=== PATIENT | male | born 1950 | race Caucasian/White ===

== ENCOUNTER 2020-08-02 09:43 | Inpatient (IN) | payer OTHER ==
[~2020-08-02] VITALS: Ht 177.8 cm; Wt 93.0 kg
[~2020-08-02 09:43] MED LIST: AMLO5 PO; ATOR40TA PO; BP MED; CHOLESTEROL MED; CITA20 PO; IRBESARTAN300 MG PO; PSYL5.85P PO
[2020-08-02 10:23] LABS: BASOPHILS ABSOLUTE AUTO 0.05 K/mm3 (0.00-0.23); BASOPHILS PERCENT AUTO 0 % (0-2); EOSINOPHILS PERCENT AUTO 0 % (0-6); Hematocrit 33.7 % (37.0-53.0); Hemoglobin 10.3 g/dL (13.5-17.5); IMMATURE GRAN ABSOLUTE AUTO 0.16 K/mm3 (0.00-0.10); IMMATURE GRAN PERCENT AUTO 1 % (0-1); LYMPHOCYTES ABSOLUTE AUTO 1.21 K/mm3 (0.84-5.20); LYMPHOCYTES PERCENT AUTO 7 % (21-46); MONOCYTES ABSOLUTE AUTO 0.93 K/mm3 (0.16-1.47); MONOCYTES PERCENT AUTO 5 % (4-13); Mean Corpuscular HGB 27.1 pg (26.0-34.0); Mean Corpuscular HGB Conc 30.6 g/dL (31.5-36.5); Mean Corpuscular Volume 89 fL (80-100); NEUTROPHILS ABSOLUTE AUTO 15.16 K/mm3 (1.96-9.15); NEUTROPHILS PERCENT AUTO 87 % (41-73); Platelet Count 198 K/mm3 (150-400); RDW Coefficient Variation 14.1 % (11.7-14.2); RDW Standard Deviation 45.8 fL (35.1-46.3); White Blood Cell Count 17.51 K/mm3 (4.00-11.30)
[2020-08-02 10:40] LABS: International Normalized Ratio 1.02; Prothrombin Time Results 10.9 Sec (9.7-11.5)
[2020-08-02 10:41] LABS: Alanine Aminotransfer (ALT/SGP 34 U/L (12-78); Albumin, Blood 3.2 g/dL (3.4-5.0); Albumin/Globulin Ratio 1.2 (0.8-1.8); Alk Phos 64 U/L (50-136); Anion Gap 10 mmol/L (6-16); Aspartate Aminotrans (AST/SGOT 14 U/L (12-37); Bilirubin, Total 0.4 mg/dL (0.1-1.0); Blood Urea Nitrogen 55 mg/dL (8-24); CO2, Blood 22 mmol/L (21-32); Calcium, Blood 8.4 mg/dL (8.5-10.1); Chloride, Blood 107 mmol/L (98-108); Globulin, Blood 2.7 g/dL (2.2-4.0); Glomerular Filtration Rate >60 (60-); Glucose, Blood 238 mg/dL (70-99); Sodium, Blood 139 mmol/L (136-145); Total Protein, Blood 5.9 g/dL (6.4-8.2)
[2020-08-02] MEDS ORDERED: CARV3.125 PO (11:19)
[2020-08-02] MEDS ORDERED: ATOR40TA PO (11:19)
[2020-08-02] MEDS ORDERED: CITALOPRAM HBR10 MG PO (11:19)
[2020-08-02] MEDS ORDERED: ZYRTEC10 M2 PO (14:35)
[2020-08-02 15:23] LABS: Hematocrit 32.7 % (37.0-53.0); Hemoglobin 10.5 g/dL (13.5-17.5)
--- NOTE | 2020-08-02 18:40 | NUR ---
SETTLED PT TO BED, PLACED TELE. PT LUNGS CLEAR, RESP EASY, UNLABORED. STATES NO BM SINCE EARLIER IN DAY. STATES DARK TARRY STOOL LOOSE. PLACED HAT IN COMMODE. AT BEDSIDE. PT A/O X3 PLEASANT. URINAL AT BEDSIDE. PASSED INFO TO VICTORIA HALL.
[2020-08-02 21:28] LABS: Hematocrit 31.5 % (37.0-53.0); Hemoglobin 9.7 g/dL (13.5-17.5)
[2020-08-02 23:27] LABS: Source, Urine Clean Catch
[2020-08-02 23:30] LABS: Bilirubin, Urine Neg (Neg); Blood, Urine Neg (Neg); Glucose Qualitative, Urine Neg (Neg); Ketones, Urine Neg (Neg); Leukocyte Esterase, Urine Neg (Neg); Nitrite, Urine Neg (Neg); Protein, Urine Neg (Neg); Specific Gravity, Urine 1.015 (1.003-1.022); Urobilinogen, Urine NORM (Normal)
[2020-08-02 23:31] LABS: Appearance, Urine Clear (Clear); Color, Urine Yellow (P-Yellow)
[2020-08-03 02:15] LABS: Hematocrit 27.7 % (37.0-53.0); Hemoglobin 8.8 g/dL (13.5-17.5); Mean Corpuscular HGB 27.6 pg (26.0-34.0); Mean Corpuscular HGB Conc 31.8 g/dL (31.5-36.5); Mean Corpuscular Volume 87 fL (80-100); Mean Platelet Volume 10.6 fL (9.1-12.4); Platelet Count 164 K/mm3 (150-400); RDW Coefficient Variation 14.6 % (11.7-14.2); RDW Standard Deviation 45.5 fL (35.1-46.3); Red Blood Cell Count 3.19 M/mm3 (4.30-5.90); White Blood Cell Count 15.35 K/mm3 (4.00-11.30)
[2020-08-03 02:34] LABS: Alanine Aminotransfer (ALT/SGP 23 U/L (12-78); Albumin, Blood 3.3 g/dL (3.4-5.0); Albumin/Globulin Ratio 1.3 (0.8-1.8); Alk Phos 54 U/L (50-136); Anion Gap 8 mmol/L (6-16); Aspartate Aminotrans (AST/SGOT 13 U/L (12-37); Bilirubin, Total 0.3 mg/dL (0.1-1.0); Blood Urea Nitrogen 34 mg/dL (8-24); CO2, Blood 26 mmol/L (21-32); Calcium, Blood 8.2 mg/dL (8.5-10.1); Chloride, Blood 108 mmol/L (98-108); Globulin, Blood 2.5 g/dL (2.2-4.0); Glomerular Filtration Rate >60 (60-); Glucose, Blood 131 mg/dL (70-99); Potassium, Blood 4.5 mmol/L (3.5-5.5); Sodium, Blood 142 mmol/L (136-145); Total Protein, Blood 5.8 g/dL (6.4-8.2)
--- NOTE | 2020-08-03 05:32 | NUR ---
PT UNABLE TO GET MUCH SLEEP TONIGHT. AO TELE NSR ROOM AIR VOIDING TO URINAL 2 SMALL BM - BLACK, TARRY STOOL VSS H/H TRENDING DOWN NO C/O PAIN CALL LIGHT WITHIN REACH, BED IN LOWEST POSITION. WILL CONTINUE TO MONITOR.
--- NOTE | 2020-08-03 07:35 | NUR ---
ASSUMED CARE: PT AWAKE AND TALKING TO STAFF UPON ENTRANCE TO ROOM. NSR ON TELE. NO ACUTE NEEDS OR CONCERNS AT THIS TIME. HAVE NOT WITNESSED STOOL BUT NIGHT RN REPORTS BLACK AND RAGHAVENDRA
[2020-08-03 09:03] LABS: Hematocrit 25.9 % (37.0-53.0); Hemoglobin 8.2 g/dL (13.5-17.5)
--- NOTE | 2020-08-03 09:52 | NUR ---
DAY SURGERY STAFF AT BEDSIDE AT THIS TIME. TAKING PT FOR PROCEDURE VIA ANN MARIERTRENA.
--- NOTE | 2020-08-03 10:02 | NUR ---
History, Chart, Medications and Allergies reviewed before start of procedure. Lungs clear T/O to Auscultation. Patient confirms NPO status and agrees with scheduled surgery. Pre-Op teaching done. Pt verbalizes understanding.
--- NOTE | 2020-08-03 10:46 | NUR ---
08/03/20 1046 Dinah Nettles History, Chart, Medications and Allergies reviewed before start of procedure.PATIENT DETERMINED TO BE ASA APPROPRIATE FOR PROPOFOL SEDATION PRIOR TO START OF PROCEDURE BY .MONITOR INTACT WITH CONTINUOUS PULSE OXIMETRY AND INTERMITTENT BP.3-LEAD EKG REVIEWED WITH PHYSICIAN PRIOR TO START OF PROCEDURE.O2 VIA N/C INTACT THROUGHOUT SEDATION/PROCEDURE.BP INTERMITTENTLY LKOW DURING PROCEDURE. MD ERVIN.
[2020-08-03 14:58] LABS: Hematocrit 23.4 % (37.0-53.0); Hemoglobin 7.4 g/dL (13.5-17.5)
--- NOTE | 2020-08-03 16:10 | NUR ---
REPORTED TO DR MATHEWS THAT THERE WAS A DECREASE IN H AND H. NO BLACK TARRY STOOL REPORTED OR RECORDED. DR WILL REPEAT H AND H THIS EVENING
--- NOTE | 2020-08-03 17:32 | NUR ---
SHIFT SUMMARY: PT HAD ONE TARRY, MAROON STOOL THIS SHIFT. EGD THIS AM WITH NO FINDINGS. PLAN FOR COLONOSCOPY IN AM. STARTED GOLYTELY THIS EVENING. H AND H CONTINUING TO DROP BUT MONITORING AT THIS TIME AND WILL REPEAT LAB THIS EVENING. AT BEDSIDE T/O DAY. NO FURTHER NEEDS OR CONCERNS AT THIS TIME.
[2020-08-03 20:49] LABS: Hematocrit 23.9 % (37.0-53.0); Hemoglobin 7.6 g/dL (13.5-17.5)
[2020-08-04 04:07] LABS: Hematocrit 21.9 % (37.0-53.0); Mean Corpuscular HGB 27.8 pg (26.0-34.0); Mean Corpuscular Volume 87 fL (80-100); Mean Platelet Volume 10.5 fL (9.1-12.4); NRBC ABSOLUTE 0.03 K/mm3 (0.00-0.02); NRBC Auto 0.3 /100 WBC (0.0-0.2); Platelet Count 136 K/mm3 (150-400); RDW Coefficient Variation 14.7 % (11.7-14.2); RDW Standard Deviation 45.1 fL (35.1-46.3); Red Blood Cell Count 2.52 M/mm3 (4.30-5.90)
[2020-08-04 04:28] LABS: Anion Gap 5 mmol/L (6-16); Blood Urea Nitrogen 19 mg/dL (8-24); Bun/Creatinine Ratio 22.5 (12.0-20.0); CO2, Blood 29 mmol/L (21-32); Calcium, Blood 7.6 mg/dL (8.5-10.1); Chloride, Blood 107 mmol/L (98-108); Creatinine, Blood 0.85 mg/dL (0.60-1.20); Glomerular Filtration Rate >60 (60-); Glucose, Blood 99 mg/dL (70-99); Potassium, Blood 3.4 mmol/L (3.5-5.5); Sodium, Blood 141 mmol/L (136-145)
--- NOTE | 2020-08-04 05:35 | NUR ---
PT RESTED COMFORTABLY THROUGH NIGHT AO TELE NSR ROOM AIR GI - GOLYTELY COMPLETED, STOOL HAS SEDIMENT, BUT CLEAR - NPO P MIDNIGHT - VOIDING TO URINAL VSS NO EVIDENT SIGNS OF BLEEDING, BUT H/H TRENDING DOWN CALL LIGHT WITHIN REACH, BED IN LOWEST POSITION. WILL CONTINUE TO MONITOR.
--- NOTE | 2020-08-04 07:15 | NUR ---
ASSUMED CARE: PT RESTING IN BED, AWAKE AND SPEAKS WITH STAFF. DENIES NEEDS OR CONCERNS AT THIS TIME.
--- NOTE | 2020-08-04 12:26 | NUR ---
Patient states colon prep results clear. History, Chart, Medications and Allergies reviewed before start of procedure. Lungs clear T/O to Auscultation. Patient confirms NPO status and agrees with scheduled surgery. Pre-Op teaching done. Pt verbalizes understanding.
--- NOTE | 2020-08-04 12:31 | NUR ---
PT TAKEN TO DAY SURGERY. ESCORTED VIA DAY SURGERY STAFF. BLOOD RUNNING WHEN PT LEFT PER INSTRUCTION OF DR GENTILE. BLOOD COMPLETED AND IV POLE RETURNED BY STAFF.
--- NOTE | 2020-08-04 13:28 | NUR ---
08/04/20 1328 Dinah Nettles History, Chart, Medications and Allergies reviewed before start of procedure.PATIENT DETERMINED TO BE ASA APPROPRIATE FOR PROPOFOL SEDATION PRIOR TO START OF PROCEDURE BY .MONITOR INTACT WITH CONTINUOUS PULSE OXIMETRY AND INTERMITTENT BP.3-LEAD EKG REVIEWED WITH PHYSICIAN PRIOR TO START OF PROCEDURE.O2 VIA N/C INTACT THROUGHOUT SEDATION/PROCEDURE. NASAL TRUMPET PLACED DUE TO INTERMITENT DECREASED SPO2 AND ADGETAQITON DURING PROCEDURE. PATIENT CALMED DOWN SIGNIFICANTLY AFTER PLACED
[2020-08-04 14:33] LABS: Hematocrit 23.8 % (37.0-53.0); Hemoglobin 7.4 g/dL (13.5-17.5)
--- NOTE | 2020-08-04 14:51 | NUR ---
PT RETURNED FROM DAY SURGERY. DAY SURGERY NURSE REPORTS CLEAR COLONOSCOPY. DR MATHEWS CAME TO SEE PT AND STATES PLAN IS TO WATCH H/H TO ENSURE STABILITY AND THEN PT WILL FOLLOW UP WITH GI OUTPT. AT BEDSIDE. PT EATING SANDWICH AT THIS TIME.
--- NOTE | 2020-08-04 18:25 | NUR ---
SHIFT SUMMARY: PT RESTING QUIETLY. COLONOSCOPY COMPLETED AND NEGATIVE. PLAN IS TO ENSURE H/H STABILIZES THEN OUTPT FOLLOW UPS TO DETERMINE BLEEDING SOURCE. AT BEDSIDE MAJORITY OF SHIFT. VSS. NO FURTHER NEEDS OR CONCERNS.
--- NOTE | 2020-08-04 22:54 | NUR ---
1950 pt resting comfortably in bed; denies pain or dyspnea.
[2020-08-05 04:45] LABS: Hematocrit 24.4 % (37.0-53.0); Hemoglobin 7.5 g/dL (13.5-17.5); Mean Corpuscular HGB 27.6 pg (26.0-34.0); Mean Corpuscular HGB Conc 30.7 g/dL (31.5-36.5); Mean Corpuscular Volume 90 fL (80-100); Mean Platelet Volume 10.8 fL (9.1-12.4); NRBC ABSOLUTE 0.09 K/mm3 (0.00-0.02); NRBC Auto 1.3 /100 WBC (0.0-0.2); Platelet Count 128 K/mm3 (150-400); RDW Coefficient Variation 14.8 % (11.7-14.2); RDW Standard Deviation 47.1 fL (35.1-46.3); Red Blood Cell Count 2.72 M/mm3 (4.30-5.90); White Blood Cell Count 7.14 K/mm3 (4.00-11.30)
[2020-08-05 05:09] LABS: Anion Gap 4 mmol/L (6-16); Blood Urea Nitrogen 16 mg/dL (8-24); Bun/Creatinine Ratio 17.1 (12.0-20.0); CO2, Blood 30 mmol/L (21-32); Calcium, Blood 7.5 mg/dL (8.5-10.1); Chloride, Blood 109 mmol/L (98-108); Creatinine, Blood 0.93 mg/dL (0.60-1.20); Glomerular Filtration Rate >60 (60-); Glucose, Blood 88 mg/dL (70-99); Potassium, Blood 3.2 mmol/L (3.5-5.5); Sodium, Blood 143 mmol/L (136-145)
--- NOTE | 2020-08-05 05:34 | NUR ---
SHIFT SUMMARY: 69 Y/O OBESE MALE RESTED COMFORTABLY ALL SHIFT; DENIES PAIN OR NAUSEA; ZERO BLOODY STOOLS OR EMESIS NOTED; TELEMETRY REFLECTS NSR PER LUBNA--[employer]; ALERT AND ORIENTED X4; BED LOW POSITION WITH CALL LIGHT AT SIDE.
--- NOTE | 2020-08-05 11:42 | NUR ---
DISCHARGE HOME PATIENT DC HOME WITH INSTRUCTIONS AND MEDICATION CHANGES REVIEWED. IV LINE REMOVED. PATIENTS PRESENT AT DC AND WILL DRIVE HIM HOME. BOTH AGREEABLE TO THE DISCHARGE AND DENY AND QUESTIONS OR CONCERNS AT THIS TIME. PATIENT ESCORTED OUT BY WHEELCHAIR TO VEHICLE BY THIS RN. PATIENT STABLE AT TIME OF DISCHARGE.
== END 2020-08-05 11:31 | disposition home or self-care (01) | DRG 378 ==
LOC: ER 09:43 → ERHOLD 13:30 → PCU 13:30 → ENPENDDIS 08-05 10:23 → PCU 08-05 11:31
PROVIDERS: Emergency Medicine; Internal Medicine; Nurse Practitioner Acute Care; Student in an Organized Health Care Education/Training Program; ADMIT Internal Medicine
PROC: 30233N1 Transfusion of Nonautologous Red Blood Cells into Peripheral Vein, Percutaneous Approach (ICD-10-PCS; 2020-08-03)
PROC: 0DB68ZX Excision of Stomach, Via Natural or Artificial Opening Endoscopic, Diagnostic (ICD-10-PCS; principal; 2020-08-03 11:00)
PROC: 0DBM8ZX Excision of Descending Colon, Via Natural or Artificial Opening Endoscopic, Diagnostic (ICD-10-PCS; 2020-08-04)
DX: K92.2 Gastrointestinal hemorrhage, unspecified (principal); D62 Acute posthemorrhagic anemia; I10 Essential (primary) hypertension; E78.5 Hyperlipidemia, unspecified; N28.89 Other specified disorders of kidney and ureter; E66.01 Morbid (severe) obesity due to excess calories; F32.9 Major depressive disorder, single episode, unspecified; N40.2 Nodular prostate without lower urinary tract symptoms; Z68.30 Body mass index [BMI] 30.0-30.9, adult; D72.829 Elevated white blood cell count, unspecified
CPT/HCPCS: 36415; 36430; 71046; 74177; 80048; 80053; 81003; 82272; 82947; 84153; 85014; 85018; 85025; 85027; 85610; 85730; 86850; 86900; 86901; 86920; 88305; 88313; 88342; 93005; 93010; 96361; 96365-59; 96366; 96375; 99285-25; A9270-GY; C9113; J2250; J2405; J2704; J7030; J7120; P9016; Q9967; U0002

== ENCOUNTER 2021-12-29 11:29 | Day surgery (SDC) | payer OTHER ==
[~2021-12-29] VITALS: Ht 177.8 cm; Wt 95.5 kg
[~2021-12-29 11:29] MED LIST changes: +ASPIR 8181 M1 PO; +CARV3.125 PO; +CITALOPRAM HBR10 MG PO; +Flomax0.4 MG PO; +ZYRTEC10 M2 PO
== END 2021-12-29 13:38 | disposition home or self-care (01) ==
LOC: ORSCSDS 11:29
PROVIDERS: Student in an Organized Health Care Education/Training Program
PROC: 0DBL8ZX Excision of Transverse Colon, Via Natural or Artificial Opening Endoscopic, Diagnostic (ICD-10-PCS; principal; 2021-12-29 12:45)
PROC: 0DBK8ZX Excision of Ascending Colon, Via Natural or Artificial Opening Endoscopic, Diagnostic (ICD-10-PCS; principal; 2021-12-29 12:45)
PROC: 0DBN8ZX Excision of Sigmoid Colon, Via Natural or Artificial Opening Endoscopic, Diagnostic (ICD-10-PCS; principal; 2021-12-29 12:45)
PROC: 0DBM8ZX Excision of Descending Colon, Via Natural or Artificial Opening Endoscopic, Diagnostic (ICD-10-PCS; principal; 2021-12-29 12:45)
DX: Z86.010 Personal history of colon polyps (principal); Z80.0 Family history of malignant neoplasm of digestive organs; D12.5 Benign neoplasm of sigmoid colon; D12.3 Benign neoplasm of transverse colon; D12.2 Benign neoplasm of ascending colon; D12.4 Benign neoplasm of descending colon; K57.30 Diverticulosis of large intestine without perforation or abscess without bleeding; K64.8 Other hemorrhoids; I10 Essential (primary) hypertension; E78.5 Hyperlipidemia, unspecified; G47.33 Obstructive sleep apnea (adult) (pediatric); Z79.82 Long term (current) use of aspirin
CPT/HCPCS: 88305; J2704; J7120

== ENCOUNTER 2022-08-11 07:44 | Day surgery (SDC) | payer OTHER ==
[~2022-08-11] VITALS: Ht 177.8 cm; Wt 96.5 kg
--- NOTE | 2022-08-11 09:35 | NUR ---
08/11/22 0935 Patricia Morales COMPLETED BY DR STEINBERG. TIME OUT PERFORMED BY RNAT 0910. INJECTION COMPLETED AT 0915. PT TOLERATED PROCEDURE WELL.
== END 2022-08-11 12:05 | disposition home or self-care (01) ==
LOC: ORSCSDS 07:44
PROVIDERS: Orthopaedic Surgery
PROC: 0RNK4ZZ Release Left Shoulder Joint, Percutaneous Endoscopic Approach (ICD-10-PCS; principal; 2022-08-11 09:00)
PROC: 0LS44ZZ Reposition Left Upper Arm Tendon, Percutaneous Endoscopic Approach (ICD-10-PCS; principal; 2022-08-11 09:00)
PROC: 0LM24ZZ Reattachment of Left Shoulder Tendon, Percutaneous Endoscopic Approach (ICD-10-PCS; principal; 2022-08-11 09:00)
DX: M75.122 Complete rotator cuff tear or rupture of left shoulder, not specified as traumatic (principal); M75.22 Bicipital tendinitis, left shoulder; M75.42 Impingement syndrome of left shoulder; I10 Essential (primary) hypertension; E78.5 Hyperlipidemia, unspecified; G47.33 Obstructive sleep apnea (adult) (pediatric); Z86.73 Personal history of transient ischemic attack (TIA), and cerebral infarction without residual deficits; Z85.53 Personal history of malignant neoplasm of renal pelvis; N40.0 Benign prostatic hyperplasia without lower urinary tract symptoms; Z79.899 Other long term (current) drug therapy; Z79.82 Long term (current) use of aspirin
CPT/HCPCS: C1713; J0171; J0690; J1100; J2250; J2370; J2405; J2704; J3010; J7120

== ENCOUNTER 2024-10-06 12:38 | Emergency (ER) | payer OTHER ==
[~2024-10-06] VITALS: Ht 177.8 cm; Wt 97.1 kg
[2024-10-06 13:50] LABS: BASOPHILS ABSOLUTE AUTO 0.06 K/mm3 (0.00-0.23); BASOPHILS PERCENT AUTO 1 % (0-2); EOSINOPHILS ABSOLUTE AUTO 0.16 K/mm3 (0.00-0.68); EOSINOPHILS PERCENT AUTO 2 % (0-6); Hematocrit 44.6 % (37.0-53.0); Hemoglobin 14.4 g/dL (13.5-17.5); IMMATURE GRAN ABSOLUTE AUTO 0.03 K/mm3 (0.00-0.10); IMMATURE GRAN PERCENT AUTO 0 % (0-1); LYMPHOCYTES ABSOLUTE AUTO 1.05 K/mm3 (0.84-5.20); LYMPHOCYTES PERCENT AUTO 12 % (21-46); MONOCYTES ABSOLUTE AUTO 0.63 K/mm3 (0.16-1.47); MONOCYTES PERCENT AUTO 7 % (4-13); Mean Corpuscular HGB 27.5 pg (26.0-34.0); Mean Corpuscular HGB Conc 32.3 g/dL (31.5-36.5); Mean Corpuscular Volume 85 fL (80-100); NEUTROPHILS ABSOLUTE AUTO 6.96 K/mm3 (1.96-9.15); NEUTROPHILS PERCENT AUTO 78 % (41-73); Platelet Count 161 K/mm3 (150-400); RDW Coefficient Variation 14.5 % (11.7-14.2); RDW Standard Deviation 45.1 fL (35.1-46.3); Red Blood Cell Count 5.24 M/mm3 (4.30-5.90); White Blood Cell Count 8.89 K/mm3 (4.00-11.30)
[2024-10-06 14:11] LABS: Albumin, Blood 3.5 g/dL (3.4-5.0); Albumin/Globulin Ratio 1.2 (0.8-1.8); Bilirubin, Total 0.6 mg/dL (0.1-1.0); Bun/Creatinine Ratio 12.6 (12.0-20.0); Calcium, Blood 8.7 mg/dL (8.5-10.1); Creatinine, Blood 0.95 mg/dL (0.60-1.20); Total Protein, Blood 6.5 g/dL (6.4-8.2)
[2024-10-06 16:04] VITALS: BP 176/72
== END 2024-10-06 16:25 | disposition home or self-care (01) ==
LOC: ER 12:38
PROVIDERS: Physician Assistant
DX: R22.0 Localized swelling, mass and lump, head (principal); K11.8 Other diseases of salivary glands; Z79.899 Other long term (current) drug therapy; Z79.82 Long term (current) use of aspirin; I10 Essential (primary) hypertension; E78.00 Pure hypercholesterolemia, unspecified
CPT/HCPCS: 70487; 80053; 85025; 99284-25; Q9967

== ENCOUNTER 2025-01-01 13:24 | Day surgery (SDC) | payer OTHER ==
[~2025-01-01] VITALS: Ht 177.8 cm; Wt 95.6 kg
[~2025-01-01 13:24] MED LIST changes: +Atropine Sulfate 0.1 MG/ML 10ML SYR ONE; +Glycopyrrolate 0.2 MG/ML 1MLVIAL ONE; +Lactated Ringer's 1,000 ML IV ONE; +Lidocaine 2% 5 ML SDV ONE; +Lidocaine HCl/Pf 1% 5 ML VIAL ONE; +Ondansetron HCl 2 MG / ML 2ML Vial ONE; +ePHEDrine Sulfate 50 MG/ML 1ML Injection ONE
[2025-01-01] MEDS ORDERED: CETI5 (13:48)
[2025-01-01] MEDS ORDERED: propofoL 50 ML IV ONE (14:36)
[2025-01-01] MEDS ORDERED: Lactated Ringer's 1,000 ML IV ONE (14:40)
[2025-01-01 15:22] VITALS: BP 120/55
== END 2025-01-01 15:32 | disposition home or self-care (01) ==
LOC: ORSCSDS 13:24
PROVIDERS: Internal Medicine Gastroenterology
PROC: 0DBK8ZX Excision of Ascending Colon, Via Natural or Artificial Opening Endoscopic, Diagnostic (ICD-10-PCS; principal; 2025-01-01 15:00)
DX: Z12.11 Encounter for screening for malignant neoplasm of colon (principal); Z86.0100 Personal history of colon polyps, unspecified; D12.2 Benign neoplasm of ascending colon; K57.30 Diverticulosis of large intestine without perforation or abscess without bleeding; G47.33 Obstructive sleep apnea (adult) (pediatric); I10 Essential (primary) hypertension; E78.5 Hyperlipidemia, unspecified; Z80.0 Family history of malignant neoplasm of digestive organs; D64.9 Anemia, unspecified; E66.9 Obesity, unspecified; Z68.30 Body mass index [BMI] 30.0-30.9, adult; Z79.899 Other long term (current) drug therapy
CPT/HCPCS: 88305; J0461; J2003; J2405; J2704; J7120